=== PATIENT | female | born 1955 | race Caucasian/White ===

== ENCOUNTER → 2016-11-05 | Outpatient (CLI) | payer BC ==
[~2016-11-05] MED LIST: MULT-506 PO; OMEG10007 PO
--- NOTE | 2016-11-05 16:37 | MAMMOGRAPHY REPORT ---
BILATERAL DIGITAL SCREENING MAMMOGRAM TOMOSYNTHESIS WITH CAD: 11/05/2016 CLINICAL HISTORY: Routine screening examination. TECHNIQUE: Breast tomosynthesis in addition to standard 2D mammography was performed. Current study was also evaluated with a Computer Aided Detection (CAD) system. COMPARISON: Comparison is made to exams dated: 06/07/2014 mammogram, 02/09/2013 mammogram, 01/09/2011 mammogram - [facility], and 02/16/2008. BREAST COMPOSITION: The tissue of both breasts is heterogeneously dense, which may obscure small ma sses. FINDINGS: A lobulated and circumscribed 11 mm mass in the 9:00 history left breast is unchanged in s ize dating back to at least 02/16/2008, and therefore likely benign. No new suspicious mass, herminia ectural distortion or cluster of microcalcifications is seen. IMPRESSION: ACR BI-RADS CATEGORY 1: NEGATIVE There is no mammographic evidence of malignancy. A 1 year screening mammogram is recommended. The p atient will receive written notification of the results. Approximately 10% of breast cancers are not detected with mammography. A negative mammographic repor t should not delay biopsy if a clinically suggestive mass is present. Анна Ventura M.D. ay/:11/05/2016 15:32:31 Cam Maker: Jannet ANGLIN)(Evy), [facility] letter sent: Normal 1/2 BI-RADS Code: ACR BI-RADS Category 1: Negative
== END | disposition home or self-care (01) ==
LOC: C.MAMM 14:38
PROVIDERS: ATTEND Obstetrics & Gynecology
DX: Z12.31 Encounter for screening mammogram for malignant neoplasm of breast (principal)

== ENCOUNTER → 2017-10-01 | Outpatient (CLI) | payer BC | END | disposition home or self-care (01) | LOC: C.RDSM 08:22 | PROVIDERS: ATTEND Physical Medicine & Rehabilitation Sports Medicine | DX: M17.12 Unilateral primary osteoarthritis, left knee (principal) ==

== ENCOUNTER 2017-11-25 04:52 | Inpatient (IN) | payer BC, OTHER ==
[2017-11-10 15:23] VITALS: BMI 25.0
[2017-11-10 15:34] VITALS: BMI 25.0
--- NOTE | 2017-11-10 15:52 | PAT Medication Instructions ---
Service Date Nov 10, 2017. Current Home Medication List Fish Oil ([place]erick-3), 1 CAP PO QAM Losartan Potassium (Cozaar), 50 MG PO QAM Multivitamin (Multivitamin), 1 TAB PO QAM [Biotin], 1 TAB PO QAM Medication Instructions For Your Scheduled Surgery - Hold the following medications 2 weeks prior to surgery: Fish Oil (Frederick-3), 1 CAP PO QAM - Hold the following medications the morning of surgery: Multivitamin (Multivitamin), 1 TAB PO QAM [Biotin], 1 TAB PO QAM Losartan Potassium (Cozaar), 50 MG PO QAM If you have any questions please call us at [phone] or [phone] or [phone]
--- NOTE | 2017-11-10 16:05 | HISTORY & PHYSICAL EXAMINATION ---
DATE OF ADMISSION: 11/19/2017 CHIEF COMPLAINT: Left knee pain. HISTORY OF PRESENT ILLNESS: This 62-year-old white female presents to the office with complaints longstanding history of left knee pain. It has become worse with time. It is now affecting her ADLs. She has tried viscosupplementation, oral anti-inflammatories, and activity modification in the past. It is not providing lasting relief at this point. She has a history of previous right total knee arthroplasty in 2011 and has done well with this. She elects to proceed with left total knee arthroplasty in hopes of alleviating her pain. Preoperative imaging has been obtained. PAST MEDICAL HISTORY: Significant for actinic keratosis, basal cell skin cancer, osteoarthritis, hypertension, and history of asthma. PREVIOUS SURGERIES: Right knee total knee arthroplasty in 2011, in 1991, skin biopsies, knee arthroscopy 2009, and tonsillectomy. FAMILY HISTORY: Noncontributory. ALLERGIES: NKDA. CURRENT MEDICATIONS: Biotin daily, losartan 50 mg p.o. daily, and multivitamin daily. SOCIAL HISTORY: The patient is . Employed. No tobacco use. Occasional ETOH use. REVIEW OF SYSTEMS: Significant for above stated conditions, otherwise unremarkable. PHYSICAL EXAMINATION: GENERAL: Well-developed and well-nourished middle aged white female in no acute distress. Sitting in a chair. Alert and oriented. SKIN: Warm and dry with good turgor. No rashes. She has a healing punch biopsy lesion on her right hand. No ecchymosis or erythema. No intraarticular effusions. HEENT: Normocephalic and atraumatic. Eyes, PERRLA and EOMI. Nares patent bilaterally without turbinate enlargement. Oropharynx is without erythema or exudate. No lesions noted. Uvula midline. Oral mucosa moist. Fair dentition. Fillings are noted. HEART: Bradycardic. Regular rhythm. No murmurs, gallops or rubs. LUNGS: Clear to auscultation bilaterally. No crackles, rhonchi or wheezing. Good air movement. ABDOMEN: Bowel sounds present x4. Soft and nontender. No organomegaly. No masses. MUSCULOSKELETAL: Left knee has no intraarticular effusion. Full terminal extension. Flexion to greater than 100 degrees. Strength is 5/5 with good quad tone. Stable collateral ligaments. No laxity. No defect in the patellar tendon or quadriceps tendon. She has focal discomfort with palpation over the patellofemoral joint and medial compartment. She also has posterior pain. Ambulatory with a minimally antalgic gait. NEUROLOGIC: Gross sensation is intact across the lower extremities by soft touch. Peripheral pulses are 2+. Cranial nerves II through XII are intact. DATA: Radiographic imaging previously obtained shows advanced DJD of the patellofemoral joint and medial compartment. Periarticular osteophytes and subchondral sclerosis were also present. IMPRESSION: Left knee degenerative joint disease. PLAN: Preoperative lab work, EKG, and chest x-ray have been ordered. Medical clearance has been requested from her PCP, Dr. Appiah. She would like to return to work approximately a week postop, having to work only 4 hours per day. She already has a walker and crutches. Postoperative prescriptions for Percocet and Coumadin will be provided at discharge from the hospital. She will sign her consent for left knee total knee arthroplasty on the day of surgery.
[2017-11-10 16:35] LABS: BASO % 0.2 %; BASO ABS # 0.02 K/uL (0-0.2); EOS % 0.7 %; EOS ABS # 0.06 K/uL (0-0.5); HEMATOCRIT 38.1 % (37-47); HEMOGLOBIN 13.5 g/dL (12.0-16.0); IG# 0.01 K/uL (0.00-0.02); LYMPH % 30.8 %; LYMPH ABS # 2.48 K/uL (1.2-3.4); MEAN CELL VOLUME 91.4 fL (80-100); MEAN CORPUSCULAR HEMOGLOBIN 32.4 pg (25-34); MEAN CORPUSCULAR HGB CONC 35.4 g/dl (32-36); MEAN PLATELET VOLUME 9.7 fL (7.4-10.4); MONO % 7.1 %; MONO ABS # 0.57 K/uL (0.11-0.59); NEUT % 61.1 %; NEUT ABS # 4.91 K/uL (1.4-6.5); PLATELET COUNT 238 K/uL (130-400); RED CELL DISTRIBUTION WIDTH CV 12.5 % (11.5-14.5); RED CELL DISTRIBUTION WIDTH SD 41.9 fL (36.4-46.3); WHITE BLOOD COUNT 8.05 K/uL (4.8-10.8)
[2017-11-10 16:45] LABS: CALCIUM 9.2 mg/dl (8.5-10.1); CREATININE 0.9 mg/dl (0.60-1.20)
[2017-11-10 16:57] LABS: PTT PATIENT 26.3 SECONDS (21.0-31.0)
--- NOTE | 2017-11-10 16:58 | DIAGNOSTIC IMAGING REPORT ---
CHEST 2 VIEWS ROUTINE CLINICAL HISTORY: Preoperative chest COMPARISON STUDY: 10/09/2016 FINDINGS: The cardiac and mediastinal contours are normal. There is no evidence of focal pulmonary consolidation. There is no evidence of failure. No pleural effusions are visualized.[ A linear opacity at the left lung base is felt to represent subsegmental atelectatic change. IMPRESSION: No active disease in the chest. Electronically signed by: Ramu Beavers M.D. 11/10/2017 4:57 PM Dictated Date/Time: 11/10/2017 4:56 PM
[~2017-11-25] VITALS: Ht 157.5 cm; Wt 62.5 kg
[~2017-11-25 04:52] MED LIST changes: +BIOTPOW17 PO; +CEFAZOLIN 2000MG IV PUSH 10 ML IV SCH; +LACTATED RINGER'S 1000ML 1,000 ML IV SCH; +LACTATED RINGER'S 1000ML 500 ML IV SCH; +LACTATED RINGER'S 1000ML IV SCH; +LOSA50TA6 PO; +ROPIVACAINE 5MG/ML 30 ML 150 MG, BUPIVACAINE/EPINEPHR 0.5% MPF 30 ML, KETOROLAC TROMETH... INFIL SCH; +TRANEXAMIC ACID INJ 1,000 MG in SYRINGE 0 ML IV SCH
[2017-11-25] MEDS ORDERED: ACET-1256 PO (05:42)
[2017-11-25 05:47] VITALS: BP 138/89; PULSE 60; TEMP 36.7; O2SAT 96; Ht 157.5 cm; Wt 62.5 kg
[2017-11-25] MEDS ORDERED: SODIUM CHLORIDE 0.9% 1000ML 1,000 ML IV SCH (06:00)
[2017-11-25] MEDS ORDERED: LACTATED RINGER'S 1000ML IV SCH (06:00)
[2017-11-25] MEDS ORDERED: ROPIVACAINE 5MG/ML 30 ML 150 MG, BUPIVACAINE/EPINEPHR 0.5% MPF 30 ML, KETOROLAC TROMETH... INFIL SCH ×7 (06:00)
[2017-11-25] MEDS ORDERED: LACTATED RINGER'S 1000ML 500 ML IV SCH (06:00)
[2017-11-25] MEDS ORDERED: TRANEXAMIC ACID INJ 1,000 MG in SYRINGE 0 ML IV SCH (06:00)
[2017-11-25] MEDS ORDERED: CEFAZOLIN 2000MG IV PUSH 10 ML IV SCH (06:00)
[2017-11-25] MEDS ORDERED: ROPIVACAINE 5MG/ML 30 ML 150 MG, BUPIVACAINE 0.5% MPF INJ 30 ML, EpINEphrine HCL INJ 0.... INFIL SCH ×8 (06:00)
--- NOTE | 2017-11-25 06:22 | History & Physical Bridge Note ---
H&P Re-Evaluation Bridge Note: I have examined the patient, reviewed the History & Physical and in the interval since the performance of the History & Physical I have noted the following changes of clinical significance: consent obtained.No changes noted
[2017-11-25] MEDS ORDERED: EpINEphrine INJ 1MG/ML AMP 1 MG/ML AMP ONE (06:27)
[2017-11-25] MEDS ORDERED: BUPIVACAINE 0.5 % 5 MG/1 ML PF 10ML VIAL ONE (06:27)
[2017-11-25] MEDS ORDERED: BUPIVACAINE 0.25% 30 ML VIAL ONE (06:27)
[2017-11-25] MEDS ORDERED: ORTHO JOINT ANESTHETIC ONE (06:32)
[2017-11-25] MEDS ORDERED: POVIDONE-IODINE OP SOLN 30 ML BTL ONE (06:33)
[2017-11-25] MEDS ORDERED: MIDAZOLAM HCL 1 MG/ML 2ML VIAL ONE ×2 (06:46→08:14)
[2017-11-25] MEDS ORDERED: CEFAZOLIN SOD 1 GM VIAL ONE (08:02)
--- NOTE | 2017-11-25 08:27 | [facility] Post Operative Brief Note ---
Immediate Operative Summary Operative Date Nov 25, 2017. Pre-Operative Diagnosis Left Knee Degenerative Joint Disease Post-Operative Diagnosis Left Knee Degenerative Joint Disease Procedure(s) Performed Left Total Knee Arthroplasty Surgeon Dr. Ashby Building Services Engineer Surgeon(s) AARON Hardy Estimated Blood Loss 50 ml Findings Consistent with Post-Op Diagnosis Fluids (cc crystalloids) 1000cc Specimens A. Left Knee Bone and Tissue Drains None Anesthesia Type MAC Spinal Regional Complication(s) none Disposition Disposition: Recovery Room / PACU
[2017-11-25] MEDS ORDERED: ONDANSETRON INJ 2 MG/ML 2 ML VIAL IV PRN ×2 (08:45→09:00)
[2017-11-25] MEDS ORDERED: METOCLOPRAMIDE HCL INJ 5 MG/ML 2 ML VIAL IV PRN (08:45)
[2017-11-25] MEDS ORDERED: DiphenhydrAMINE HCL 50 MG/ML VIAL IV PRN (08:45)
[2017-11-25] MEDS ORDERED: ACETAMINOPHEN 325 MG TAB PO PRN (08:45)
[2017-11-25] MEDS ORDERED: BISACODYL 10 MG SUPP PR PRN (08:45)
[2017-11-25] MEDS ORDERED: MAGNESIUM HYDROXIDE SUSP 30 ML UDC PO PRN (08:45)
[2017-11-25] MEDS ORDERED: OXYCODONE HCL IR 5 MG TAB (IMMEDIATE RELEASE) PO PRN (08:45)
[2017-11-25] MEDS ORDERED: ALUMINUM/MAGNESIUM/SIMETH (MAALOX MAX) 30 ML UDC PO PRN (08:45)
[2017-11-25] MEDS ORDERED: ACETAMINOPHEN IV 100 ML IV PRN (08:45)
[2017-11-25] MEDS ORDERED: MoRPHine SULFATE 2 MG/ML CARP IV PRN ×2 (08:45→11:00)
--- NOTE | 2017-11-25 08:45 | [facility] Operative Report ---
Operative Report Operative Date Nov 25, 2017. Pre-Operative Diagnosis Left Knee Degenerative Joint Disease Post-Operative Diagnosis Left Knee Degenerative Joint Disease Procedure(s) Performed Left Total Knee Arthroplasty Surgeon Dr. Ashby C 40A Crew Chief Surgeon(s) AARON Bolden Estimated Blood Loss 50 ml Findings Left knee DJD Fluids 1000cc Specimens A. Left Knee Bone and Tissue Drains none Complication(s) None Disposition Recovery Room / PACU Indications This 62-year-old white female presented the office with complaints of intractable left knee pain. She had tried conservative care measures without success. She has a history of previous right total knee arthroplasty and did very well with it. She elected to proceed with the same on the left. Preoperative imaging was obtained. Description of Procedure Patient was administered a spinal anesthetic and then taken to the operating room where she was given sedation. She was prepped and draped in usual sterile fashion. Please see Dr. Ashby's operative report for specifics of the procedure. I was present for the entire case from initial patient positioning through final wound closure. Assistance was provided in tissue traction, hemostasis, trial implant placement, final implant placement, and final wound closure. Patient was taken to the recovery room in satisfactory condition. I attest to the content of the Intraoperative Record and any orders documented therein. Any exceptions are noted below.
--- NOTE | 2017-11-25 08:53 | Anesthesiology Progress Note ---
Anesthesia Post Op Note Date & Time Nov 25, 2017 at 08:53 Vital Signs Pain Intensity: 0 Vital Signs Past 12 Hours Date Time Temp Pulse Resp B/P (MAP) Pulse Ox O2 Delivery O2 Flow Rate FiO2 11/25/17 08:40 47 16 106/64 100 2 11/25/17 08:31 36.4 68 16 107/61 98 Oxymask 10 11/25/17 05:47 36.7 60 18 138/89 96 Room Air Notes Mental Status: alert / awake / arousable, participated in evaluation Pt Amnestic to Procedure: Yes Nausea / Vomiting: adequately controlled Pain: adequately controlled Airway Patency, RR, SpO2: stable & adequate BP & HR: stable & adequate Hydration State: stable & adequate Neuraxial Anesthesia: was administered, sensory block is resolving Anesthetic Complications: no major complications apparent
[2017-11-25] MEDS ORDERED: ATROPINE SULFATE 0.1 MG/ML 5ML SYR IV PRN (09:00)
[2017-11-25] MEDS ORDERED: MEPERIDINE HCL 25 MG/ML CARP IV PRN (09:00)
[2017-11-25] MEDS ORDERED: HYDROmorphone INJ 2 MG/ML SYR/VIAL IV PRN (09:00)
[2017-11-25] MEDS ORDERED: FENTANYL CITRATE INJ 50 MCG/1 ML 2 ML VIAL IV PRN (09:00)
[2017-11-25] MEDS ORDERED: PHENYLEPHRINE 100MCG/ML 5ML SYR IV PRN (09:00)
[2017-11-25] MEDS ORDERED: FLUMAZENIL 0.1 MG/1 ML 10 ML VIAL IV PRN (09:00)
[2017-11-25] MEDS ORDERED: LABETALOL HCL IV 5 MG/ML 20ML IV PRN (09:00)
[2017-11-25] MEDS ORDERED: NALOXONE HCL 0.4 MG/1 ML VIAL/CARP IV PRN (09:00)
[2017-11-25] MEDS ORDERED: EpHEDrine SULFATE INJ 50 MG/ML AMP IV PRN (09:00)
--- NOTE | 2017-11-25 09:08 | OPERATIVE REPORT ---
DATE OF OPERATION: 11/25/2017 SURGEON: Dr. Ashby. RUSTIC TERRAZZO SETTER: Lico Fortune PA-C. No resident or fellow available. PREOPERATIVE DIAGNOSES: Osteoarthritis of the left knee with patellofemoral severe disease, medial compartment severe disease and varus alignment. No flexion deformity. POSTOPERATIVE DIAGNOSES: Same. OPERATION PERFORMED: Cemented left total knee replacement. SUMMARY OF IMPLANTS: Size 2.5 posterior cruciate substituting femur left, size 2.5 rotating tibial platform tray, size 2.5 x 15 mm thick spacer posterior cruciate substituting, oval domed 3 pegged patella size 35 and 2 bags of Palacos G cement. ESTIMATED BLOOD LOSS: 50 mL. CRYSTALLOID: 1000 mL. DRAINS: No drains. SPECIMENS: Pending total tissue removed. DESCRIPTION OF PROCEDURE: The patient was properly identified, site verified, consent verified, and 2 grams of Ancef confirmed as being given. A gram of TXA confirmed as being given. The left lower extremity was prepped and draped in the usual routine fashion. Tourniquet inflated at 300 mmHg after exsanguination of limb with a rubber Esmarch bandage for a total of 47 minutes. Midline exposure was utilized. Parapatellar arthrotomy performed. Synovectomy completed. Appropriate releases completed. There was grade 4 disease in the entire trochlea and patella. The patella was effaced. The medial compartment had grade 4 disease in the entire compartment. The lateral compartment was relatively spared. The cruciates were intact. The cruciates were then marked, distal femur entered and then the cruciate sacrificed. Meniscus excised. Tibia subluxated easily. Distal femur resected 12 mm. Proximal tibia resected 4 mm. The extension gap was excellent. Femur was sized between a 3 and 2.5 and was measured 3 cut 2.5. No notching occurred. The flexion gap was checked excellent. The box cut was then made and the size 2.5 tracked well. The tibia was then broached and reamed to 2.5 and appropriate spacer seated. The 15 was most stable in full extension and full flexion. The patella was then sized to a 35. Resection made leaving about 14.5 to 15 mm. Seating holes made and the trial tracked well. The wound was then irrigated with Pulsavac, Betadine, injected with an ortho mix and then after mixing, the cement was then placed and the permanent implants cemented into position. After 12 minutes, the tourniquet deflated. After 14 minutes, the knee flexed. No cement removal required. Wound was irrigated with Betadine Pulsavac after the trial liner was removed. There was no cement that needed to be removed. Permanent liner seated. The knee reduced and closed with #1 Ethibond, #1 Vicryl for the fascia, 2-0 Vicryl for the subcutaneous layer and stainless steel clips for skin. Appropriate dressing applied. The patient transferred to recovery room in satisfactory condition having tolerated the procedure well. DVT prophylaxis with Coumadin. I attest to the content of the Intraoperative Record and any orders documented therein. Any exception s are noted below.
--- NOTE | 2017-11-25 09:17 | DIAGNOSTIC IMAGING REPORT ---
LEFT KNEE 2 VIEWS History: Left total knee arthroplasty. Degenerative arthritis. Postop. FINDINGS: The patient is status post a left total knee arthroplasty. The hardware is intact. No fracture or dislocation. Skin tyrone are in place. IMPRESSION: Left total knee arthroplasty. No evidence for hardware complication. Electronically signed by: Wolfgang Alston M.D. 11/25/2017 9:16 AM Dictated Date/Time: 11/25/2017 9:15 AM
[2017-11-25 09:40] VITALS: BP 127/80; PULSE 45; TEMP 36.4; O2SAT 100
[2017-11-25 10:40] VITALS: BP 125/82; PULSE 56; O2SAT 99
[2017-11-25] MEDS ORDERED: D5W AND 1/2NSS + 20MEQ KCL 1,000 ML IV SCH (11:00)
[2017-11-25] MEDS ORDERED: MoRPHine SULFATE 4 MG/ML 1 ML CARP\\VIAL IV PRN (11:00)
[2017-11-25 11:39] VITALS: BP 130/79; PULSE 59; TEMP 36.9; O2SAT 99
[2017-11-25] MEDS: LOSARTAN POTASSIUM 50 MG TAB PO SCH (12:00)
[2017-11-25] MEDS: FERROUS GLUCONATE 324 MG TAB PO SCH ×2 (12:15→16:51)
[2017-11-25] MEDS: MULTIVITAMIN TAB PO SCH (12:15)
[2017-11-25] MEDS: KETOROLAC TROMETHAMINE 30 MG/ML VIAL IV. SCH ×3 (12:16→23:50)
[2017-11-25 12:39] VITALS: BP 98/64; PULSE 70; O2SAT 96
[2017-11-25] MEDS ORDERED: WARF2TAB PO (12:43)
[2017-11-25] MEDS ORDERED: OXYC-57 PO (12:43)
--- NOTE | 2017-11-25 12:49 | Discharge Instructions-SurgCtr ---
Discharge Instructions Date of Service Nov 25, 2017. Visit Reason for Visit: Left Knee Osteoarthritis Discharge Discharge Diagnosis / Problem: left knee s/p total knee replacement Discharge Goals Goal(s): Decrease discomfort, Improve function, Increase independence Activity Recommendations Activity Limitations: as noted below Lifting Limitations: gradually increase as tolerated Exercise/Sports Limitations: until after follow-up appointment Shower/Bathe: keep incision dry Driving or Machine Use: No driving until cleared by Dr. Ashby Weightbearing Status: Left weightbearing (as tolerated) Instructions / Follow-Up Instructions / Follow-Up New Medicine: * You will likely be taking one or more of these medications: 1. Percocet - Take, as directed, when you need it, every four to six hours to control your pain. 2. Coumadin - Thins your blood to lessen the chance of forming a blood clot. The dose of this is different for each person and is based on your blood tests that are done twice a week. * The most common side effects of pain medicine and iron are nausea and constipation. If nausea or constipation is too much of a problem or if you have any questions about your new medicines or doses, call [facility] at . We will try to help you manage these issues. VERY IMPORTANT TO READ AND REVIEW" Blood Clots and Blood Thinning Medicine: * You are given Coumadin during the immediate post-operative period to lessen the risk of blood clots forming in your legs and/or lungs. Coumadin is usually given for six weeks after surgery. * The prescription is for 2 mg tablets. At discharge, you should understand your dose and take it all at the same time every day, preferably after dinner. * You need to get your blood checked 1 - 2 times per week for six weeks or as directed. * If your dose needs to change, we will call you. Do not take your medication on the day of the blood test until we call you. Pain: * The immediate post-operative period after knee replacement surgery is often quite painful. * You are given a prescription for pain medicine. You should take it, as directed, when you need it, especially before physical therapy and before going to bed. Pain that interferes with sleep is very common and can last several months. * You will likely need pain medicine for the first four to six weeks. It will not stop all of the pain. The pain will lessen and as you feel better, you may change to milder pain medicine such as Tylenol. * The most common side effects of pain medicine are nausea and constipation, so don't take more than you need. Physical Therapy: * You will have physical therapy two or three times each week for four to six weeks after your surgery in order to regain your knee range of motion and to retrain your knee to work properly. * It is just as important to make sure you are getting your knee perfectly straight as it is to regain your knee bend. * Taking a pain pill an hour before therapy can help you have a more productive and comfortable therapy session if needed. Home Exercise: * You were shown a series of exercises (heel props, heel slides, etc.) in the hospital. Do these exercises three to four times each day including the exercises you were shown in physical therapy. Walking: * Get up and walk several times each day. For the first four weeks, try not to stand or walk for more than one hour at a time. If you do stand or walk for more than one hour, you will not hurt anything, but your knee and leg will likely swell. * As you feel comfortable, you may change from the walker or crutches to a cane and then to independent walking. SELF CARE INSTRUCTIONS AFTER TOTAL KNEE REPLACEMENT A. You may need to continue a physical therapy program after discharge from the hospital. There are several options available to you. Your doctor will assist you in selecting the best one for you. 1. An out-patient facility 2 to 3 times a week for therapy or home therapy. 2. Continue working on all exercises taught to you in the hospital. Your goals should be to increase bending of your knee to 90 degrees and beyond and to fully straighten your knee. B. You may progress at your own pace from walking with a walker or crutches to a cane; then to no assistive devices. C. Make walking a part of your daily routine. Be up as much as comfortable with rest periods throughout the day. Rest with leg elevation is very important. Use the ice wrap frequently for the first 3-4 weeks. D. There are no restrictions on activities. You may ride in a car, shop, participate in aerospace mechanic and all social activities. E. Wear the long elastic stockings (MEGHA hose) 20 hours a day for six weeks after surgery. They can be removed several times a day for laundering and for a shower. F. Do not place a pillow behind your knee when resting. A pillow at your ankle is okay. VERY IMPORTANT TO READ AND REVIEW A. Take Coumadin, Aspirin or Lovenox (blood thinning medications) as directed by your doctor. If on Coumadin, have a pro-time (blood test) drawn according to your doctor's instructions. This will tell the doctor how well the Coumadin is thinning your blood. 1. YOU WILL BE GIVEN AN ORDER AT DISCHARGE FOR PT/INR (BLOOD WORK). PLEASE HAVE THIS DONE INSTRUCTED. PLEASE CALL OUR OFFICE AFTER YOUR BLOODWORK IS COMPLETE SO WE CAN TRACK YOUR RESULTS. IF YOU ARE GOING TO OUTPATIENT PHYSICAL THERAPY, YOU WILL NEED TO GO TO OUTPATIENT TESTING TO HAVE IT DRAWN. B. There are a few signs you need to watch for after you are home. Call [facility] if you notice any of the followin. Increased severe knee pain. Some pain is expected especially when you exercise. 2. Increased swelling in your leg or knee; pain or swelling of the calf muscle in either lower leg. 3. Any fluid drainage from the incision. 4. Shortness of breath or chest pain. C. Please call [facility] at if you have any concerns or questions about your operation or recovery. The doctor or his nurse will return your call promptly. D. You must take antibiotics before dental work, bladder, bowel or other surgery. Call the office to obtain a prescription at least 2 days prior to your appointment. * CALL IF INCREASED PAIN, REDNESS, DRAINAGE OR FEVER GREATER THAT 101. * Sutures should be removed 12-14 days after surgery unless you are on chronic steriods, then it will be 14-18 days after surgery. Call your doctor if: * Temperature above 101 degrees F. * Pain not relieved by pain medicine ordered. * Increased drainage or redness from incision. * Notify your doctor with any questions or concerns. Diet Recommendations Home Diet: resume previous diet Procedures Procedures Performed: Left Total Knee Arthroplasty Pending Studies Studies pending at discharge: no Medical Emergencies . Who to Call and When: Medical Emergencies: If at any time you feel your situation is an emergency, please call 911 immediately. . Non-Emergent Contact Non-Emergency issues call your: Primary Care Provider, Surgeon Call Non-Emergent contact if: temperature is above 101, wound has increased drainage, wound has increased redness, wound has increased pain, you have any medication questions . . "Provider Documentation" section prepared by Lico Fortune PA-C. . [facility] Drug Monitoring Program Search Results: no issues identified
[2017-11-25] MEDS ORDERED: TRANEXAMIC ACID INJ 1,000 MG in SODIUM CHLORIDE 0.9% 100ML 100 ML IV SCH (14:30)
--- NOTE | 2017-11-25 15:16 | PROGRESS NOTE ---
DATE: 11/25/2017 Postop check status post left total knee replacement. The patient is doing well and has no major issues. She denies chest pain, shortness of breath, fever, chills, nausea, vomiting or headache. Vital signs are stable. She is afebrile. The femoral sciatic nerve function is normal. She can do a straight leg raise and get her leg to 0, can get her leg close to 90. X-rays postop look excellent. ASSESSMENT: Doing well. Continue with postop care pathway, mobilize safely, walk with knee immobilizer for the first 24 hours. Discharge tomorrow a.m. if she is doing well.
[2017-11-25 15:19] VITALS: BP 115/70; PULSE 58; TEMP 36.9; O2SAT 95
[2017-11-25] MEDS ORDERED: WARFARIN SOD 5 MG TAB PO ONE (16:00)
[2017-11-25] MEDS: DOCUSATE SODIUM 100 MG CAP PO SCH (20:33)
[2017-11-26] MEDS: KETOROLAC TROMETHAMINE 30 MG/ML VIAL IV. SCH (05:59)
--- NOTE | 2017-11-26 06:39 | PROGRESS NOTE ---
DATE: 11/26/2017 Postop day #1 status post left total knee replacement. The patient is doing well, has no issues with pain. Vital signs are stable. She denies nausea, vomiting, chest pain, shortness of breath, fever or chills. Vital signs are stable. She is afebrile. Neurovascular check, femoral sciatic nerve is normal. Can do a straight leg raise and easily bend 50 degrees. She has been weightbearing and walking in the hallways. A.m. labs are pending. ASSESSMENT: Doing well. PLAN: Discharge on 4 mg Coumadin if INR is 1.5 or less. If it is 1.6 or greater, 2 mg. Followup in 2 weeks for staple removal.
[2017-11-26 06:51] VITALS: BP 126/72; PULSE 54; TEMP 36.7; O2SAT 100
[2017-11-26 06:52] LABS: HEMATOCRIT 28.6 % (37-47); HEMOGLOBIN 10.1 g/dL (12.0-16.0); MEAN CELL VOLUME 92.9 fL (80-100); MEAN CORPUSCULAR HEMOGLOBIN 32.8 pg (25-34); MEAN CORPUSCULAR HGB CONC 35.3 g/dl (32-36); MEAN PLATELET VOLUME 9.1 fL (7.4-10.4); PLATELET COUNT 182 K/uL (130-400); RED CELL DISTRIBUTION WIDTH CV 12.9 % (11.5-14.5); RED CELL DISTRIBUTION WIDTH SD 43.7 fL (36.4-46.3); WHITE BLOOD COUNT 9.78 K/uL (4.8-10.8)
--- NOTE | 2017-11-26 07:01 | DISCHARGE SUMMARY ---
CHIEF COMPLAINT: Left knee pain. HISTORY OF PRESENT ILLNESS: Status post left total knee replacement. The patient's hospital course has been uneventful. PAST MEDICAL HISTORY: Remarkable for actinic keratosis, basal cell skin cancer, osteoarthritis, hypertension and asthma. PAST SURGICAL HISTORY: Include right total knee replacement in 2011, in 1991, skin biopsies and tonsillectomy. FAMILY HISTORY: Noncontributory. ALLERGIES: None. CURRENT MEDICATIONS: Include biotin, losartan and multivitamin. SOCIAL HISTORY: Reveals she is , unemployed. No tobacco or alcohol use. REVIEW OF SYSTEMS: Reveals no chest pain, shortness of breath, fever, chills, nausea, vomiting or headache. PERTINENT PHYSICAL EXAMINATION: Reveals no chest or abdominal issues. No DVT issues. Good control of her left leg. Wound dressing clean, dry and intact. ASSESSMENT: Overall, doing well. Plan is for discharge today. Discharge on 4 mg of Coumadin if INR is 1.5 or less. If INR is 1.6 or greater, 2 mg. Check INR on Friday. Follow up for outpatient PT tomorrow.
[2017-11-26] MEDS ORDERED: DEXAMETHASONE INJ 10 MG in SYRINGE 0 ML IV SCH (07:30)
[2017-11-26 07:31] LABS: CALCIUM 8.4 mg/dl (8.5-10.1); CREATININE 0.78 mg/dl (0.60-1.20)
--- NOTE | 2017-11-26 08:22 | Orthopedic Progress Note ---
Orthopedic Progress Note Date of Service Nov 26, 2017. Subjective Post OP Day: 1 Reports: feeling well, pain controlled w PO medications, Denies: complaints, chest pain, SOB, nausea / vomiting, light headedness, calf pain Objective calves soft nontender, N/V intact, capillary refill less than 2 sec., incision C /D/I, A&O x3, toes mobile dressing with small amount of bloody drainage on dressings, able to independently SLR LLE. Distal N/V intact Date Time Temp Pulse Resp B/P (MAP) Pulse Ox O2 Delivery O2 Flow Rate FiO2 11/26/17 06:51 36.7 54 18 126/72 (90) 100 Room Air 11/25/17 20:45 Room Air 11/25/17 15:28 Room Air 11/25/17 15:19 36.9 58 16 115/70 (85) 95 Room Air 11/25/17 12:39 70 16 98/64 (75) 96 Room Air 11/25/17 11:39 36.9 59 18 130/79 (96) 99 Room Air 11/25/17 10:40 56 16 125/82 (96) 99 Room Air 11/25/17 09:40 100 Nasal Cannula 2.0 11/25/17 09:40 100 Nasal Cannula 2.0 11/25/17 09:40 36.4 45 16 127/80 (96) 100 Nasal Cannula 2.0 11/25/17 09:20 36.5 46 20 128/58 100 Nasal Cannula 2 11/25/17 09:10 47 14 119/64 100 Nasal Cannula 2 11/25/17 09:00 47 16 122/61 100 Nasal Cannula 2 11/25/17 08:53 49 16 109/65 100 2 11/25/17 08:40 47 16 106/64 100 2 11/25/17 08:31 36.4 68 16 107/61 98 Oxymask 10 Laboratory Results 24 Hours: Test 11/26/17 06:30 Hematocrit 28.6 % Hemoglobin 10.1 g/dL Prothromb Time International Ratio 1.0 Prothrombin Time 10.6 SECONDS Assessment & Plan Assessment: POD 1 - Left TKA Plan: Continue OOB/PT WBAT - D/C immobilizer Ice PRN Regular diet Coumadin for DVT prophylaxis. D/C to home today, will start out patient PT tomorrow. All questions answered. Discharge instructions provided. Discharge Planning Discharge Planning: home Pain Management: Percocet DVT Prophylaxis: TEDs, Coumadin
[2017-11-26] MEDS ORDERED: OXYC-57 PO (08:26)
[2017-11-26] MEDS ORDERED: WARF2TAB PO (08:26)
[2017-11-26] MEDS: FERROUS GLUCONATE 324 MG TAB PO SCH (08:30)
[2017-11-26] MEDS: DOCUSATE SODIUM 100 MG CAP PO SCH (08:47)
[2017-11-26] MEDS: LOSARTAN POTASSIUM 50 MG TAB PO SCH (08:47)
[2017-11-26] MEDS: MULTIVITAMIN TAB PO SCH (08:48)
[2017-11-26 09:49] VITALS: BP 126/72; PULSE 54; TEMP 36.7; O2SAT 100
[2017-11-26] MEDS ORDERED: WARFARIN SOD 5 MG TAB PO SCH (16:00)
== END 2017-11-26 11:01 | disposition home or self-care (01) | DRG 470 ==
LOC: C.ACU 04:52 → C.3E 06:25 → ENRESERV 09:13
PROVIDERS: ADMIT Physical Medicine & Rehabilitation Sports Medicine; ATTEND Physical Medicine & Rehabilitation Sports Medicine
PROC: 0SRD0J9 Replacement of Left Knee Joint with Synthetic Substitute, Cemented, Open Approach (ICD-10-PCS; principal; 2017-11-25 07:00)
DX: M17.12 Unilateral primary osteoarthritis, left knee (principal); I10 Essential (primary) hypertension; Z96.651 Presence of right artificial knee joint; Z87.09 Personal history of other diseases of the respiratory system; Z85.828 Personal history of other malignant neoplasm of skin; Z87.2 Personal history of diseases of the skin and subcutaneous tissue; Z79.899 Other long term (current) drug therapy

== ENCOUNTER → 2018-01-19 | Outpatient (CLI) | payer OTHER ==
[~2018-01-19] MED LIST changes: -CEFAZOLIN 2000MG IV PUSH 10 ML IV SCH; -LACTATED RINGER'S 1000ML 1,000 ML IV SCH; -LACTATED RINGER'S 1000ML 500 ML IV SCH; -LACTATED RINGER'S 1000ML IV SCH; -OMEG10007 PO; +OXYC-57 PO; -ROPIVACAINE 5MG/ML 30 ML 150 MG, BUPIVACAINE/EPINEPHR 0.5% MPF 30 ML, KETOROLAC TROMETH... INFIL SCH; -TRANEXAMIC ACID INJ 1,000 MG in SYRINGE 0 ML IV SCH; +WARF2TAB PO
== END | disposition home or self-care (01) ==
LOC: C.RDSM 07:15
PROVIDERS: ATTEND Physical Medicine & Rehabilitation Sports Medicine
DX: Z96.652 Presence of left artificial knee joint (principal)